=== PATIENT | male | born 1995 | race Caucasian/White ===

== ENCOUNTER 2017-11-03 13:49 | Emergency (ER) | payer OTHER ==
[~2017-11-03] VITALS: Ht 182.9 cm; Wt 85.6 kg
[2017-11-03 13:53] VITALS: TEMP 36.4; Ht 182.9 cm; Wt 85.6 kg
[2017-11-03 14:49] LABS: BASO % 0.9 %; BASO ABS # 0.04 K/uL (0-0.2); EOS % 1.1 %; EOS ABS # 0.05 K/uL (0-0.5); HEMATOCRIT 48.3 % (42-52); HEMOGLOBIN 17.1 g/dL (14.0-18.0); IG# 0.01 K/uL (0.00-0.02); LYMPH % 27.2 %; LYMPH ABS # 1.28 K/uL (1.2-3.4); MEAN CELL VOLUME 88.6 fL (80-100); MEAN CORPUSCULAR HEMOGLOBIN 31.4 pg (25-34); MEAN CORPUSCULAR HGB CONC 35.4 g/dl (32-36); MEAN PLATELET VOLUME 10.4 fL (7.4-10.4); MONO % 5.7 %; MONO ABS # 0.27 K/uL (0.11-0.59); NEUT % 64.9 %; NEUT ABS # 3.05 K/uL (1.4-6.5); PLATELET COUNT 199 K/uL (130-400); RED CELL DISTRIBUTION WIDTH CV 12.6 % (11.5-14.5); RED CELL DISTRIBUTION WIDTH SD 39.8 fL (36.4-46.3)
[2017-11-03 15:06] LABS: ALBUMIN 4.5 gm/dl (3.4-5.0); CALCIUM 9.6 mg/dl (8.5-10.1); CREATININE 0.86 mg/dl (0.60-1.40); POTASSIUM 4.2 mmol/L (3.5-5.1)
[2017-11-03 15:09] LABS: TOTAL PROTEIN 8.6 gm/dl (6.4-8.2)
--- NOTE | 2017-11-03 15:29 | DIAGNOSTIC IMAGING REPORT ---
ULTRASOUND OF THE SPLEEN CLINICAL HISTORY: Left upper quadrant abdominal pain. COMPARISON STUDY: No priors. FINDINGS: Real-time, grayscale, and color flow sonography of the spleen is performed. The spleen is normal in size and homogeneous in echotexture, measuring 11.8 cm in length. No splenic lesion is identified. There is no perisplenic fluid. The splenic vessels at the hilum appear patent. Survey images of the left kidney show normal renal size and echotexture. There is no hydronephrosis. IMPRESSION: Unremarkable sonographic assessment of the spleen. Electronically signed by: Juanito Marcano M.D. 11/03/2017 3:27 PM Dictated Date/Time: 11/03/2017 3:26 PM
[2017-11-03 15:54] VITALS: BP 122/68; PULSE 76; O2SAT 99
--- NOTE | 2017-11-03 20:29 | EMERGENCY ROOM VISIT NOTE ---
ED Visit Note First contact with patient: 13:58 Chief Complaint: Abdominal pain. History of Present Illness: Mr. Barrios is a 22 year-old white male who ambulates into the ED complaining of left upper quadrant abdominal pain. Historically patient reports no significant gastrointestinal disorders or abdominal surgeries. Patient reports a acute onset of intermittent left upper quadrant abdominal pain that started approximately 4 days ago. Patient reports he has been having a pulsing-like sensation in the left upper quadrant that occurs without any specific cause, lasts for a few seconds and then self resolves. This is happened multiple times during the last 4 days. He has not identified any aggravating or alleviating factors related to this discomfort. His discomfort is nonradiating. He has not taken any medications for his discomfort prior to arrival at the hospital. He denies any associated symptoms including fevers, chills, sweats, skin eruptions, skin color changes, upper respiratory tract symptoms, shortness of breath, chest pain, nausea, vomiting, diarrhea, constipation, rectal bleeding, black/tarry stools, urinary symptoms, hematuria, back/pain. Review of Systems: As noted above in history of present illness. All body systems were reviewed and found to be negative as noted above. Past Medical History: Patient denies. Current Medications: Patient denies. Allergies to Medications: Patient denies. Social History: Patient is currently university student; he feels safe in his home environment; he denies tobacco and alcohol use. Physical Examination: Vital Signs: Date Time Temp Pulse Resp B/P (MAP) Pulse Ox O2 Delivery O2 Flow Rate FiO2 11/03/17 15:54 76 18 122/68 99 11/03/17 15:36 76 18 122/68 99 Room Air 11/03/17 13:53 36.4 81 18 147/94 99 Room Air GENERAL: 22-year-old male in no acute distress, nontoxic-appearing, afebrile and hemodynamically stable. NEUROLOGICAL: Awake, alert and oriented to person, place and time. Answering questions appropriately and following commands. Normal gait. Good hand eye coordination. SKIN: Warm, dry and pink. No soft tissue eruptions or trauma noted. HEENT: Atraumatic and normocephalic. PERRLA. Sclera white and conjunctiva pink. Oral cavity moist and pink. Pharynx is nonerythematous or edematous. Speech normal. No lymphadenopathy. Trachea midline. No jugular venous distention. BACK: No tenderness over the bony spine. No CVA tenderness. THORAX: Lungs sounds are clear to auscultation and equal bilaterally with symmetrical chest wall. No wheezing, rales or rhonchi. No crepitus, tenderness , subcutaneous air or deformities noted. HEART: Regular rate and rhythm. No gallops, rubs or murmurs are appreciated. ABDOMEN: Flat, soft and nontender. Positive bowel sounds in all quadrants. No guarding, rigidity or organomegaly. EXTREMITIES: Moves all extremities well on command and with purpose. All distal neurovascular statuses are intact and equal bilaterally. ED Course: Patient is assessed as noted above. Patient's medication list was reviewed. Laboratory Testing: Test 11/03/17 14:20 11/03/17 14:30 Range/Units Urine Color YELLOW Urine Appearance CLEAR CLEAR Urine pH 7.5 4.5-7.5 Urine Specific [place] 1.020 1.000-1.030 Urine Protein NEG NEG Urine Glucose (UA) NEG NEG Urine Ketones NEG NEG Urine Occult Blood NEG NEG Urine Nitrite NEG NEG Urine Bilirubin NEG NEG Urine Urobilinogen NEG NEG Urine Leukocyte Esterase NEG NEG White Blood Count 4.70 4.8-10.8 K/uL Red Blood Count 5.45 4.7-6.1 M/uL Hemoglobin 17.1 14.0-18.0 g/dL Hematocrit 48.3 42-52 % Mean Corpuscular Volume 88.6 80-100 fL Mean Corpuscular Hemoglobin 31.4 25-34 pg Mean Corpuscular Hemoglobin Concent 35.4 32-36 g/dl Platelet Count 199 130-400 K/uL Mean Platelet Volume 10.4 7.4-10.4 fL Neutrophils (%) (Auto) 64.9 % Lymphocytes (%) (Auto) 27.2 % Monocytes (%) (Auto) 5.7 % Eosinophils (%) (Auto) 1.1 % Basophils (%) (Auto) 0.9 % Neutrophils # (Auto) 3.05 1.4-6.5 K/uL Lymphocytes # (Auto) 1.28 1.2-3.4 K/uL Monocytes # (Auto) 0.27 0.11-0.59 K/uL Eosinophils # (Auto) 0.05 0-0.5 K/uL Basophils # (Auto) 0.04 0-0.2 K/uL RDW Standard Deviation 39.8 36.4-46.3 fL RDW Coefficient of Variation 12.6 11.5-14.5 % Immature Granulocyte % (Auto) 0.2 % Immature Granulocyte # (Auto) 0.01 0.00-0.02 K/uL Sodium Level 137 136-145 mmol/L Potassium Level 4.2 3.5-5.1 mmol/L Chloride Level 102 98-107 mmol/L Carbon Dioxide Level 30 21-32 mmol/L Anion Gap 5.0 3-11 mmol/L Blood Urea Nitrogen 9 7-18 mg/dl Creatinine 0.86 0.60-1.40 mg/dl Est Creatinine Clear Calc Drug Dose 147.9 ml/min Estimated GFR () 142.7 Estimated GFR (Non- 123.1 BUN/Creatinine Ratio 10.7 10-20 Random Glucose 85 70-99 mg/dl Calcium Level 9.6 8.5-10.1 mg/dl Total Bilirubin 0.8 0.2-1 mg/dl Direct Bilirubin 0.2 0-0.2 mg/dl Aspartate Amino Transf (AST/SGOT) 18 15-37 U/L Alanine Aminotransferase (ALT/SGPT) 34 12-78 U/L Alkaline Phosphatase 89 45-117 U/L Total Protein 8.6 6.4-8.2 gm/dl Albumin 4.5 3.4-5.0 gm/dl Lipase 80 73-393 U/L Ultrasound Left Upper Quadrant: Was reviewed by myself and read by the radiologist showing an unremarkable ultrasound assessment of the spleen and kidney. Patient was offered pain medications and refused. Patient was reassessed multiple times during his stay in the emergency department. Patient's case was reviewed with Dr. Wu; we agreed on diagnostic approach, treatment, disposition and plan. Patient was educated about today's findings and instructed on his treatment plan ; he verbalized understanding and agreement with this plan. Clinical Impression: Left upper quadrant abdominal pain. Decision-Making: Initially my differential diagnosis I considered kidney stone, pyelonephritis, splenic inflammation/injury, constipation, musculoskeletal disorders and other causes. Disposition: Patient discharged home in stable condition; prior to departure he was reassessed and subjectively reported that he was pain and symptom-free. Plan: Patient was encouraged to use ibuprofen or acetaminophen as needed for pain every 6 hours or alternate every 3 hours for persistent pain. Patient was encouraged use a warm compress in that area as needed for pain. Patient was encouraged to stay well-hydrated. Patient was encouraged to follow-up with [facility] for recheck if not almost completely pain-free in 2-3 days. Patient was encouraged return the ED for worsening pain, vomiting, fevers, bloody urine or stools or any new/concerning symptoms.
== END 2017-11-03 15:55 | disposition home or self-care (01) ==
LOC: C.EDB 13:52 → C.EDC 15:55
DX: R10.12 Left upper quadrant pain (principal)

== ENCOUNTER 2017-11-04 22:00 | Emergency (ER) | payer OTHER ==
[~2017-11-04] VITALS: Ht 182.9 cm; Wt 86.0 kg
[2017-11-04 22:08] VITALS: TEMP 36.4; Ht 182.9 cm; Wt 86.0 kg
[2017-11-04] MEDS ORDERED: KETOROLAC TROMETHAMINE 30 MG/ML VIAL IV STA (22:34)
[2017-11-04] MEDS ORDERED: ONDANSETRON INJ 2 MG/ML 2 ML VIAL IV STA (22:34)
[2017-11-04] MEDS ORDERED: OPTIRAY 320 IV PRN (22:45)
[2017-11-04] MEDS ORDERED: SODIUM CHLORIDE 0.9% 1000ML 1,000 ML IV ONE (22:45)
[2017-11-04 22:53] LABS: BASO % 0.3 %; BASO ABS # 0.02 K/uL (0-0.2); EOS % 0.8 %; EOS ABS # 0.06 K/uL (0-0.5); HEMATOCRIT 45.9 % (42-52); HEMOGLOBIN 16.1 g/dL (14.0-18.0); IG# 0.01 K/uL (0.00-0.02); LYMPH % 28.7 %; LYMPH ABS # 2.11 K/uL (1.2-3.4); MEAN CELL VOLUME 88.3 fL (80-100); MEAN CORPUSCULAR HGB CONC 35.1 g/dl (32-36); MEAN PLATELET VOLUME 10.3 fL (7.4-10.4); MONO % 6.4 %; MONO ABS # 0.47 K/uL (0.11-0.59); NEUT % 63.7 %; NEUT ABS # 4.67 K/uL (1.4-6.5); PLATELET COUNT 198 K/uL (130-400); RED CELL DISTRIBUTION WIDTH CV 12.5 % (11.5-14.5); RED CELL DISTRIBUTION WIDTH SD 39.9 fL (36.4-46.3); WHITE BLOOD COUNT 7.34 K/uL (4.8-10.8)
[2017-11-04 23:11] LABS: ALBUMIN 4.3 gm/dl (3.4-5.0); CALCIUM 9.3 mg/dl (8.5-10.1); CREATININE 1.3 mg/dl (0.60-1.40); POTASSIUM 3.6 mmol/L (3.5-5.1)
[2017-11-04 23:14] LABS: TOTAL PROTEIN 7.9 gm/dl (6.4-8.2)
[2017-11-05 01:57] VITALS: BP 151/85; PULSE 75; O2SAT 98
--- NOTE | 2017-11-05 02:39 | EMERGENCY ROOM VISIT NOTE ---
History First contact with patient: 22:24 Chief Complaint: PAIN (GENERALIZED) Stated Complaint: BACK PAIN-SIDE PAIN-WAS HERE YESTERDAY-GOT WORSE History of Present Illness The patient is a 22 year old male who presents to the Emergency Room with complaints of abdominal pain for the past few days. The patient was initially seen and evaluated at this facility yesterday where he had complaints of primarily left upper quadrant abdominal pain. The patient states that that pain has improved, but he is now experiencing right side pain with some pain in the right side low back. The patient does not report injury or trauma. No nausea, vomiting, diarrhea, or constipation. He is urinating as normal. The patient does not have a history of abdominal surgery in the past. No reports of fever, chest pain, chest tightness, or shortness of breath. The patient rates his overall discomfort a 4/10 and has not taken anything today for his symptoms. Review of Systems More than 10 systems were reviewed and otherwise negative with the exception of history of present illness. Past Medical/Surgical History No chronic medical disease Family History No pertinent family history Social History Smoking Status: Never Smoker Current/Historical Medications No Active Prescriptions or Reported Meds Physical Exam Vital Signs Date Time Temp Pulse Resp B/P (MAP) Pulse Ox O2 Delivery O2 Flow Rate FiO2 11/05/17 01:57 75 18 151/85 98 Room Air 11/05/17 00:58 78 18 135/86 99 Room Air 11/04/17 23:03 79 18 137/95 99 Room Air 11/04/17 22:08 36.4 83 18 141/85 97 Room Air Physical Exam VITALS: Vitals are noted on the nurse's note and reviewed by myself. Vital signs stable. GENERAL: Well-developed, well-nourished, white male, who is in no acute distress and resting comfortably. Patient is cooperative with the examination. HEAD: Normocephalic atraumatic. EARS: External ear normal. External auditory canals clear, tympanic membranes pearly diggs without erythema or effusion bilaterally. EYES: Pupils equal round and reactive to light and accommodation. Conjunctivae without injection, sclerae without icterus. Extraocular movements intact. NOSE: Patent, turbinates without inflammation or discharge. MOUTH: Mucous membranes moist. Tonsils are not enlarged. Pharynx without erythema, blood, or exudate. Uvula midline. Airway patent. NECK: Supple without nuchal rigidity. No lymphadenopathy. No thyromegaly. Cervical spine is nontender. HEART: Regular rate and rhythm without murmurs gallops or rubs. LUNGS: Clear to auscultation bilaterally without wheezes, rales or rhonchi. No retractions or accessory muscle use. ABDOMEN: Positive normal bowel sounds x 4. Soft with mild generalized tenderness. No distinct point tenderness. No rebound or guarding. No CVA tenderness. MUSCULOSKELETAL: No muscle atrophy, erythema, or edema noted. Full range of motion in all extremities. No tenderness to palpation. Medical Decision & Procedures ER Provider Diagnostic Interpretation: CT ABDOMEN & PELVIS With Contrast: Small hiatal hernia. Trace oral contrast in the distal esophagus. Small splenule. Normal appendix. Oral contrast noted throughout the small bowel loops, colon, and rectum. No bowel obstruction or inflammation. No hydronephrosis or stone. Small hypodensity in the superior left kidney is too small to definitively characterize. Mildly prominent mesenteric lymph nodes are nonspecific but may be reactive. Borderline size of the spleen. Tiny fat-containing umbilical hernia. Laboratory Results 11/04/17 22:40 Red Blood Count 5.20, Mean Corpuscular Volume 88.3, Mean Corpuscular Hemoglobin 31.0, Mean Corpuscular Hemoglobin Concent 35.1, Mean Platelet Volume 10.3, Neutrophils (%) (Auto) 63.7, Lymphocytes (%) (Auto) 28.7, Monocytes (%) (Auto) 6.4, Eosinophils (%) (Auto) 0.8, Basophils (%) (Auto) 0.3, Neutrophils # (Auto) 4.67, Lymphocytes # (Auto) 2.11, Monocytes # (Auto) 0.47, Eosinophils # (Auto) 0.06, Basophils # (Auto) 0.02 11/04/17 22:40 Test 11/04/17 22:40 11/04/17 23:40 White Blood Count 7.34 K/uL (4.8-10.8) Red Blood Count 5.20 M/uL (4.7-6.1) Hemoglobin 16.1 g/dL (14.0-18.0) Hematocrit 45.9 % (42-52) Mean Corpuscular Volume 88.3 fL (80-100) Mean Corpuscular Hemoglobin 31.0 pg (25-34) Mean Corpuscular Hemoglobin Concent 35.1 g/dl (32-36) Platelet Count 198 K/uL (130-400) Mean Platelet Volume 10.3 fL (7.4-10.4) Neutrophils (%) (Auto) 63.7 % Lymphocytes (%) (Auto) 28.7 % Monocytes (%) (Auto) 6.4 % Eosinophils (%) (Auto) 0.8 % Basophils (%) (Auto) 0.3 % Neutrophils # (Auto) 4.67 K/uL (1.4-6.5) Lymphocytes # (Auto) 2.11 K/uL (1.2-3.4) Monocytes # (Auto) 0.47 K/uL (0.11-0.59) Eosinophils # (Auto) 0.06 K/uL (0-0.5) Basophils # (Auto) 0.02 K/uL (0-0.2) RDW Standard Deviation 39.9 fL (36.4-46.3) RDW Coefficient of Variation 12.5 % (11.5-14.5) Immature Granulocyte % (Auto) 0.1 % Immature Granulocyte # (Auto) 0.01 K/uL (0.00-0.02) Anion Gap 6.0 mmol/L (3-11) Est Creatinine Clear Calc Drug Dose 97.8 ml/min Estimated GFR () 89.8 Estimated GFR (Non- 77.5 BUN/Creatinine Ratio 11.1 (10-20) Calcium Level 9.3 mg/dl (8.5-10.1) Total Bilirubin 0.7 mg/dl (0.2-1) Aspartate Amino Transf (AST/SGOT) 17 U/L (15-37) Alanine Aminotransferase (ALT/SGPT) 31 U/L (12-78) Alkaline Phosphatase 79 U/L (45-117) Total Protein 7.9 gm/dl (6.4-8.2) Albumin 4.3 gm/dl (3.4-5.0) Globulin 3.6 gm/dl (2.5-4.0) Albumin/Globulin Ratio 1.2 (0.9-2) Lipase 99 U/L (73-393) Urine Color YELLOW Urine Appearance CLEAR (CLEAR) Urine pH 7.0 (4.5-7.5) Urine Specific [place] 1.006 (1.000-1.030) Urine Protein NEG (NEG) Urine Glucose (UA) NEG (NEG) Urine Ketones NEG (NEG) Urine Occult Blood NEG (NEG) Urine Nitrite NEG (NEG) Urine Bilirubin NEG (NEG) Urine Urobilinogen NEG (NEG) Urine Leukocyte Esterase NEG (NEG) Medications Administered Medications (Trade) Dose Ordered Sig/[place] Route Start Time Stop Time Status Last Admin Dose Admin Sodium Chloride 1,000 ml @ 999 mls/hr Q1H1M ONCE IV 11/04/17 22:45 11/04/17 23:45 DC 11/04/17 23:01 999 MLS/HR Ketorolac Tromethamine (Toradol Inj) 30 mg NOW STAT IV 11/04/17 22:34 11/04/17 22:35 DC 11/04/17 23:01 30 MG Ondansetron HCl (Zofran Inj) 4 mg NOW STAT IV 11/04/17 22:34 11/04/17 22:35 DC 11/04/17 23:02 4 MG ED Course Physical exam and history were performed. Nursing notes, EMR, and Medication List were personally reviewed. Patient appears to have reports of evolving abdominal pain over the past few days. He was seen yesterday were ultrasound of the left upper quadrant did not reveal etiology of his symptoms. He states his discomfort today is different, prompting his return. On examination the patient does not appear toxic but does have some generalized abdominal discomfort. IV access was established and labs were obtained. The patient was hydrated and medicated as above. CT scan was performed. The patient's blood work is as above and was reviewed. He does not have a significantly elevated white blood cell count, gross anemia, bandemia, or significant electrolyte imbalance. Lipase and transaminases are not diagnostic. Urine is without evidence of infection. The patient's CT scan was reviewed by myself and radiology without showing significant acute process. The patient may have some lymph node enlargement, which could suggest a viral etiology for his symptoms. On reevaluation the patient was very comfortably resting in his emergency department bed. He certainly did not have any evolution or worsening of his symptoms. I discussed options of care with the patient, and he feels very comfortable with discharge home. I suspect his symptoms may be related to a viral or foodborne illness, and will likely improve with conservative care. The patient is to follow with his primary care physician if symptoms persist. He was otherwise invited back to the ER with any new, worsening, or concerning symptoms. The chart was completed utilizing [employer] Speech Voice Recognition Software. Grammatical errors, random word insertions, pronoun errors, and incomplete sentences are an occasional consequence of this system due to software limitations, ambient noise, and hardware issues. Any formal questions or concerns about the content, text, or information contained within the body of this dictation should be directly addressed to the provider for clarification. . Medical Decision Differential diagnosis: Etiologies such as appendicitis, diverticulitis, PUD, biliary pathology, UTI, pancreatitis, obstruction, mesenteric ischemia, aortic pathology, infections, inflammatory bowel disease, renal colic, as well as others were entertained. Impression Primary Impression: Generalized abdominal pain Departure Information Dispostion Home / Self-Care Condition GOOD Prescriptions No Active Prescriptions or Reported Meds Forms HOME CARE DOCUMENTATION FORM, IMPORTANT VISIT INFORMATION Patient Instructions My [facility] Additional Instructions You were seen and evaluated today on an emergency basis only. This is not a substitute for, or an effort to provide, complete comprehensive medical care. It is not possible to recognize and treat all injuries or illnesses in a single emergency department visit. For this reason it is recommended that you followup with your primary care physician next week with any ongoing or persisting symptoms. For baseline pain relief you may alternate ibuprofen and acetaminophen every 4 hours for pain control. Take 600 mg ibuprofen (Advil) and then 4 hours later take 1000 mg acetaminophen (Tylenol). Do not take more than 3000 mg acetaminophen in a single day. You are welcome to return to the emergency department anytime with new, worsening, or concerning symptoms.
--- NOTE | 2017-11-05 07:07 | DIAGNOSTIC IMAGING REPORT ---
CT SCAN OF THE ABDOMEN AND PELVIS WITH IV CONTRAST CLINICAL HISTORY: Generalized abdominal pain. COMPARISON STUDY: Ultrasound of the spleen dated 11/03/2017. TECHNIQUE: Following the IV administration of 94 cc of Optiray 320, CT scan of the abdomen and pelvis is performed from the lung bases to the proximal femora. Images are reviewed in the axial, sagittal, and coronal planes. IV contrast was administered without complication. A dose lowering technique was utilized adhering to the principles of ALARA. CT DOSE: 453.45 mGy.cm FINDINGS: Lung bases: The heart is normal in size and without pericardial effusion. The lung bases are clear. Liver: The contrast-enhanced liver is normal in size, contour, and attenuation. There is no intrahepatic biliary ductal dilatation. The hepatic veins and portal veins are patent. Gallbladder: Unremarkable. Spleen: Normal in size and attenuation. Pancreas: Unremarkable. Adrenal glands: Unremarkable. Kidneys: The contrast enhanced kidneys are normal in size and without hydronephrosis. The kidneys enhance symmetrically. A subcentimeter cortical hypodensity in the left upper pole likely represents a cyst but is too small for definitive characterization. Abdominal vasculature: The abdominal aorta is normal in course and caliber. Bowel: The small bowel and colon are normal in course and caliber. The appendix is well-visualized and normal. Peritoneum: There is no intraperitoneal free air or abdominal ascites. There is a small fat-containing umbilical hernia. Lymphadenopathy: None. Pelvic viscera: The bladder, prostate, and seminal vesicles are normal as visualized. Skeletal structures: A bone island is incidentally noted in the left ilium. No lytic or blastic lesions are seen. IMPRESSION: There are no acute infectious or inflammatory findings in the abdomen or pelvis. Electronically signed by: Juanito Marcano M.D. 11/05/2017 7:06 AM Dictated Date/Time: 11/05/2017 7:03 AM
== END 2017-11-05 01:59 | disposition home or self-care (01) ==
LOC: C.EDB 22:01
DX: R10.84 Generalized abdominal pain (principal)